=== PATIENT | male | born 1975 | race Caucasian/White ===

== ENCOUNTER 2020-07-20 07:45 | Emergency (ER) | payer MEDICAID ==
[~2020-07-20] VITALS: Ht 180.3 cm; Wt 122.5 kg
[2020-07-20] MEDS ORDERED: methylPREDNISolone SOD SUCC 125 MG/2 ML VL IM ONE (08:30)
[2020-07-20] MEDS ORDERED: diphenhdrAMINE HCL 50 MG/1 ML VL IM ONE (08:30)
[2020-07-20] MEDS ORDERED: EPINEPHrine HCL 1 MG/1 ML AMP SC ONE (08:30)
[2020-07-20] MEDS ORDERED: SODIUM CHLORIDE 0.9% 1,000 ML IV ONE (09:45)
[2020-07-20] MEDS ORDERED: MORPHINE SULF INJ 2 MG/ML SYRINGE 1ML IV ONE (10:00)
[2020-07-20] MEDS ORDERED: ONDANSETRON HCL 4 MG/2 ML VIAL IV ONE (10:15)
[2020-07-20 12:40] VITALS: BP 135/95
[2020-07-20] MEDS ORDERED: CLINDAMYCIN 600MG IV 50 ML IV ONE (12:45)
== END 2020-07-20 14:37 | disposition home or self-care (01) ==
LOC: ER 07:45
DX: J02.0 Streptococcal pharyngitis (principal); I10 Essential (primary) hypertension; K21.9 Gastro-esophageal reflux disease without esophagitis; J45.909 Unspecified asthma, uncomplicated; F17.210 Nicotine dependence, cigarettes, uncomplicated; Z90.49 Acquired absence of other specified parts of digestive tract; Z90.89 Acquired absence of other organs; Z88.0 Allergy status to penicillin; Z88.8 Allergy status to other drugs, medicaments and biological substances
CPT/HCPCS: 70450; 82962; 87880; 96361; 96365; 96372; 96375; 99285; J0171; J1200; J2270; J2405; J2930; J3490; J7030